=== PATIENT | male | born 1990 | race Caucasian/White ===

== ENCOUNTER 2017-02-26 22:06 | Emergency (ER) | payer MEDICAID, OTHER ==
[2017-02-26 22:30] VITALS: BP 143/106; PULSE 88; RESP 22; TEMP 98.2; O2SAT 96
--- NOTE | 2017-02-26 22:32 | EDPHY ---
H & P Stated Complaint: med clear for detox Time Seen by Provider: 02/26/17 22:10 HPI/ROS: HPI The patient presents brought in by paramedics for medical clearance for detox. Apparently, the patient was found walking in the rain, banging an empty can along multiple surfaces, acting bizarrely. Says he does admit to using methamphetamine today as well as marijuana and tobacco. He says he is feeling jittery because of this. He denies any acute complaint otherwise.. REVIEW OF SYSTEMS Constitutional: No fever, no chills. Eyes: No discharge. ENT: No sore throat. Cardiovascular: No chest pain, no palpitations. Respiratory: No cough, no shortness of breath. Gastrointestinal: No abdominal pain, no vomiting. Genitourinary: No hematuria. Musculoskeletal: No back pain. Skin: No rashes. Neurological: No headache. PMHx: Multiple ER visits for drug related complaints Soc Hx: Homeless, polysubstance abuse PHYSICAL General Appearance: Alert, disheveled with poor hygiene Eyes: Pupils equal and round no pallor or injection ENT, Mouth: Mucous membranes moist Respiratory: There are no retractions, lungs are clear to auscultation Cardiovascular: Regular rate and rhythm Gastrointestinal: Abdomen is soft and non-tender, no masses, bowel sounds normal Neurological: A&O, moves all extremities Skin: Warm and dry, no rashes Musculoskeletal: Neck is supple non tender Extremities: symmetrical, full range of motion Psychiatric: Patient is oriented X 3, he is slightly agitated with pressured speech Source: Patient, Police, EMS - Personal History Current Tetanus/Diphtheria Vaccine: Unsure Current Tetanus Diphtheria and Acellular Pertussis (TDAP): Unsure - Medical/Surgical History Hx Asthma: Yes Hx Chronic Respiratory Disease: No Hx Diabetes: No Hx Cardiac Disease: No Hx Renal Disease: No Hx Cirrhosis: No Hx Alcoholism: No Hx HIV/AIDS: No Hx Splenectomy or Spleen Trauma: No Other PMH: asthma, bipolar, ADHD, PTSD - Social History Smoking Status: Heavy smoker Constitutional: Initial Vital Signs Temperature (C) 36.8 C 02/26/17 22:28 Heart Rate 88 02/26/17 22:28 Respiratory Rate 22 H 02/26/17 22:28 Blood Pressure 143/106 H 02/26/17 22:28 O2 Sat (%) 96 09/26/17 22:28 O2 Delivery Mode Room Air Allergies/Adverse Reactions: No Known Allergies Allergy (Unverified 05/28/12 13:55) Home Medications: Medication Instructions Recorded Marijuana 05/01/11 Medical Decision Making Differential Diagnosis: This is a 26-year-old homeless man with history of polysubstance abuse who presents brought in by police and paramedics for medical clearance for detox. Apparently, he was acting erratically in public and admitted to methamphetamine use. Patient denies any acute complaints to me. He does have several other previous ER visits for drug related complaints. He has normal vital signs and his physical exam is unremarkable for any sinister etiology. He will be discharged in police custody to [facility] he is requesting to go for detox. Differential diagnosis considered includes methamphetamine abuse, alcohol withdrawal, psychosis with underlying psychiatric disease. Departure - Departure Disposition: Home, Routine, Self-Care Clinical Impression: Polysubstance abuse, Methamphetamine abuse, Homeless Condition: Good Instructions: Methamphetamine Abuse (ED) Referrals: [facility] [Outside] - As per Instructions
== END 2017-02-26 22:40 | disposition home or self-care (01) ==
LOC: EDUNIT#
DX: F15.10 Other stimulant abuse, uncomplicated (principal); J45.909 Unspecified asthma, uncomplicated; F17.200 Nicotine dependence, unspecified, uncomplicated; Z59.0 Homelessness